=== PATIENT | female | born 1970 | race Caucasian/White ===

== ENCOUNTER 2022-10-15 13:00 | Outpatient (CLI) | payer OTHER, SELFPAY ==
[2022-10-15 13:15] LABS: Basophils Absolute Auto 0.05 K/mm3 (0.00-0.10); Basophils Percent Auto 0.6 % (0.0-1.0); Eosinophils Absolute Auto 0.61 K/mm3 (0.02-0.50); Eosinophils Percent Auto 6.8 % (1.0-6.0); Hematocrit 42.3 % (35.0-49.0); Hemoglobin 13.6 g/dL (12.0-15.0); Immature Granulocyte Absolute 0.01 K/mm3 (0.00-0.00); Immature Granulocyte Percent A 0.1 % (0.0-0.0); Lymphocytes Absolute Auto 4.02 K/mm3 (1.10-4.50); Lymphocytes Percent Auto 44.8 % (18.0-42.0); Mean Corpuscular HGB Conc 32.2 g/dL (32.0-36.0); Mean Corpuscular Hemoglobin 30.5 pg (27.0-31.0); Mean Corpuscular Volume 94.8 fL (78.0-102.0); Mean Platelet Volume 10.4 fl (9.2-11.8); Monocytes Absolute Auto 0.71 K/mm3 (0.10-0.90); Monocytes Percent Auto 7.9 % (2.0-11.0); Neutrophils Absolute Auto 3.6 K/mm3 (1.7-7.2); Neutrophils Percent Auto 39.8 % (50.0-70.0); Platelet Count Result 350 K/mm3 (150-420); Red Blood Count 4.46 M/mm3 (4.20-5.40); Red Cell Distribution Width 13.5 % (11.6-14.4)
[2022-10-15 13:36] LABS: Alanine Aminotransferase 32 U/L (14-59); Albumin Level 3.6 g/dL (3.4-5.0); Alkaline Phosphatase 102 U/L (46-116); Anion Gap 5 mmol/L (8-16); Aspartate Amino Transferase 24 U/L (15-37); Bilirubin,Total 0.2 mg/dL (0.00-1.00); Blood Urea Nitrogen 18 mg/dL (7-18); Calcium 8.9 mg/dL (8.5-10.1); Carbon Dioxide 30 mmol/L (21-32); Chloride 105 mmol/L (98-108); Cholesterol 143 mg/dL (0-200); Estimated Glomerular Filt Rate 56; Glucose 97 mg/dL (70-99); HDL Direct 49 mg/dL (40-60); LDL Cholesterol Calculated 79 mg/dL (<130); Osmolality Calculated 291 mOsm/kg (285-295); Potassium 4.2 mmol/L (3.5-5.1); Sodium 140 mmol/L (136-145); Total Protein 6.8 g/dL (6.4-8.2); Triglycerides 75 mg/dL (0-150)
== END 2022-10-15 13:01 | disposition home or self-care (01) ==
LOC: CHSLAB 13:05
PROVIDERS: PCP Internal Medicine; Visit Provider Internal Medicine
DX: E78.5 Hyperlipidemia, unspecified (principal); R07.9 Chest pain, unspecified
CPT/HCPCS: 36415; 80053; 80061; 85025